=== PATIENT | male | born 1940 | race Caucasian/White ===

== ENCOUNTER → 2016-12-25 | Outpatient (CLI) | payer MEDICARE ==
[2016-12-25 19:34] LABS: ALBUMIN SERUM 3.7 g/dL (3.5-5.0); BILIRUBIN,TOTAL 0.3 mg/dL (0.2-2.0); BUN/CREATININE RATIO 17.08; CALCIUM SERUM 8.2 mg/dL (8.4-10.2); CREATININE SERUM 2.4 mg/dL (0.6-1.4); GLOM FILT RATE Estimated 25.4 mL/min (>60); PHOSPHOROUS 2.9 mg/dL (2.5-4.6); POTASSIUM 5.1 mmol/L (3.5-5.1); PROTEIN TOTAL SERUM 6.7 g/dL (6.0-8.3); URIC ACID 10.2 mg/dL (2.6-7.2)
[2016-12-29 21:29] LABS: CALCIUM (PTHINTACT) 8.3 mg/dL (8.6-10.3)
== END | disposition home or self-care (01) ==
LOC: CLAB 18:20
PROVIDERS: Internal Medicine Nephrology
DX: N18.3 Chronic kidney disease, stage 3 (moderate) (principal)
CPT/HCPCS: 36415; 80053; 82310; 83970; 84100; 84550